=== PATIENT | male | born 1995 ===

== ENCOUNTER 2017-10-11 00:20 | Emergency (ER) | payer SELFPAY ==
--- NOTE | 2017-10-11 00:24 | EDPHY ---
H & P Source: Patient, EMS Time Seen by Provider: 10/11/17 00:23 HPI/ROS: HPI CHIEF COMPLAINT: Alcohol intoxication, seizure HISTORY OF PRESENT ILLNESS: 21-year-old male, homeless, daily alcohol use presents to the emergency room after he had a seizure. Reports to me that he does have a seizure history, however does not take any seizure medications. He has been drinking alcohol this evening. EMS and police made contact him as he was having a seizure in the street. No reported trauma. Upon arrival to the emergency room the patient is intoxicated, smells of alcohol. No trauma reported. Past Medical History: Epilepsy, seizure disorder but not on any medications Past Surgical History: No recent surgical history Social History: Alcohol use, daily alcohol use. Homeless. Family History: Noncontributory ROS REVIEW OF SYSTEMS: A comprehensive 10 point review of systems is otherwise negative aside from elements mentioned in the history of present illness. Exam Constitutional smells of alcohol, intoxicated, triage nursing summary reviewed , vital signs reviewed, awake/alert. Eyes normal conjunctivae and sclera, EOMI, PERRLA. HENT normal inspection, atraumatic, moist mucus membranes, no epistaxis, neck supple/ no meningismus, no raccoon eyes. Respiratory clear to auscultation bilaterally, normal breath sounds, no respiratory distress, no wheezing. Cardiovascular rate normal, regular rhythm, no murmur, no edema, distal pulses normal. Gastrointestinal soft, non-tender, no rebound, no guarding, normal bowel sounds, no distension, no pulsatile mass. Genitourinary no CVA tenderness. Musculoskeletal no midline vertebral tenderness, full range of motion, no calf swelling, no tenderness of extremities, no meningismus, good pulses, neurovascularly intact. Skin pink, warm, & dry, no rash, skin atraumatic. Neurologic awake, alert and oriented x 3, AAOx3, moves all 4 extremities equally, motor intact, sensory intact, CN II-XII intact, normal cerebellar, normal vision, normal speech. Psychiatric normal mood/affect. Heme/Lymph/Immune no lymphadenopathy. Differential Diagnosis: Includes but is not limited to in a particular order: Acute alcohol intoxication, seizure, breakthrough seizure, epilepsy, drug intoxication. Electrolyte abnormality. Medical Decision Making: Plan for this patient IV establishment basic blood draw, electroylte, monitor closely for further seizures. Re-evaluation: Patient on a detainer for acute alcohol intoxication. He now is walking around the ER acutely agitated and yelling and screaming. He has taken all his clothes off. He has been moved to room 17 from room 11. He has been given 10 mg IM Haldol for acute agitation aggressive behavior and screaming 2mg IM Ativan. 0100: Serum alcohol 212. 0512: Patient is sleeping. 0700: signed over to Dr. Vizcarra. (Sukh Colorado) Constitutional: Initial Vital Signs Temperature (C) 36.3 C 10/11/17 00:14 Heart Rate 109 H 10/11/17 00:14 Respiratory Rate 18 10/11/17 00:14 Blood Pressure 114/73 10/11/17 00:14 O2 Sat (%) 94 10/11/17 00:14 O2 Delivery Mode Room Air Allergies/Adverse Reactions: No Known Allergies Allergy (Unverified 10/11/17 02:57) Home Medications: Medication Instructions Recorded NK [No Known Home Meds] 10/11/17 Medical Decision Making Other Provider: Care assumed from Dr. Colorado at 6:45 a.m.. Unclear if he actually had a seizure, normal bicarbonate. He does have alcohol intoxication. He was sedated prior to my arrival, the plan as signed out to me is serial exams and discharge when normal mental status. 1130: The patient is alert and ambulatory in the emergency department. He admits to alcohol use. He admits to methamphetamine use but not for a day or 2. He tells me he has had previous diagnosis seizure, not on medication, would refuse to take medication if it is prescribed. He is not intoxicated now, clinically sober. Does have capacity to make decisions regarding his care at this time. He refused further medical evaluation, refused referral to detox. He is given primary care and neurology referrals, detox referral, encouraged to follow up there. Clearly has capacity to make decisions regarding his care now. (Blaine Vizcarra) - Data Points Laboratory Results: Laboratory Results 10/11/17 01:20 10/11/17 01:20 10/11/17 10/11/17 10/11/17 10:55 01:20 01:20 WBC 10.26 10^3/uL H 10^3/uL (3.80-9.50) RBC 5.04 10^6/uL 10^6/uL (4.40-6.38) Hgb 14.5 g/dL g/dL (13.7-17.5) Hct 42.5 % % (40.0-51.0) MCV 84.3 fL fL (81.5-99.8) MCH 28.8 pg pg (27.9-34.1) MCHC 34.1 g/dL g/dL (32.4-36.7) RDW 13.4 % % (11.5-15.2) Plt Count 354 10^3/uL 10^3/uL (150-400) MPV 9.1 fL fL (8.7-11.7) Neut % (Auto) Not Reported Lymph % (Auto) Not Reported Nash % (Auto) Not Reported Eos % (Auto) Not Reported Baso % (Auto) Not Reported Nucleat RBC Rel Count Not Reported Absolute Neuts (auto) Not Reported Absolute Lymphs (auto) Not Reported Absolute Monos (auto) Not Reported Absolute Eos (auto) Not Reported Absolute Basos (auto) Not Reported Absolute Nucleated RBC Not Reported Immature Gran % Not Reported Seg Neutrophils % 32.3 % % Band Neutrophils % 0.0 % % Lymphocytes % 55.6 % % Monocytes % 6.1 % % Eosinophils % 3.0 % % Basophils % 3.0 % % Metamyelocytes % 0.0 % % Myelocytes % 0.0 % % Promyelocytes % 0.0 % % Blast Cells % 0.0 % % Immature Gran # Not Reported Absolute Seg Neuts 3.31 10^/uL 10^/uL (1.70-6.50) Absolute Band Neuts 0.00 10^3/uL 10^3/uL (0.00-0.70) Absolute Lymphocytes 5.70 10^3/uL H 10^3/uL (1.00-3.00) Absolute Monocytes 0.63 10^3/uL 10^3/uL (0.30-0.80) Absolute Eosinophils 0.31 10^3/uL 10^3/uL (0.03-0.40) Absolute Basophils 0.31 10^3/uL H 10^3/uL (0.02-0.10) Absolute Metamyelocyte 0.00 10^3/mL 10^3/mL (0.00-0.00) Absolute Myelocytes 0.00 10^3/mL 10^3/mL (0.00-0.00) Absolute Promyelocytes 0.00 10^3/uL 10^3/uL (0.00-0.00) Absolute Plasma Cells 0.00 10^3/uL 10^3/uL (0.00-0.00) Nucleated RBCs 1.0 /100 WBC H /100 WBC (0-0) Atypical Lymphocytes 1+ H Absolute Blast Cells 0.00 10^3/uL 10^3/uL (0.00-0.00) Plasma Cells % 0.0 % % Platelet Estimate ADEQUATE (ADEQ) Sodium 144 mEq/L mEq/L (135-145) Potassium 4.2 mEq/L mEq/L (3.3-5.0) Chloride 108 mEq/L mEq/L (97-110) Carbon Dioxide 20 mEq/l L mEq/l (22-31) Anion Gap 16 mEq/L mEq/L (8-16) BUN 20 mg/dL mg/dL (7-23) Creatinine 0.9 mg/dL mg/dL (0.7-1.3) Estimated GFR > 60 Glucose 105 mg/dL H mg/dL (70-100) Calcium 9.0 mg/dL mg/dL (8.5-10.4) Urine Opiates Screen NEGATIVE (NEGATIVE) Urine Barbiturates NEGATIVE (NEGATIVE) Ur Phencyclidine Scrn NEGATIVE (NEGATIVE) Ur Amphetamine Screen NON-NEGATIVE H (NEGATIVE) U Benzodiazepines Scrn NON-NEGATIVE H (NEGATIVE) Urine Cocaine Screen NEGATIVE (NEGATIVE) U Marijuana (THC) Screen NEGATIVE (NEGATIVE) Ethyl Alcohol 212 mg/dL H mg/dL (0-10) Medications Given: Discontinued Medications Haloperidol Lactate (Haldol Injection) 10 mg IM EDNOW ONE Stop: 10/11/17 00:42 Last Admin: 10/11/17 10:36 Dose: Not Given Haloperidol Lactate (Haldol Injection) 5 mg IM EDNOW ONE Stop: 10/11/17 00:43 Last Admin: 10/11/17 00:47 Dose: 5 mg Sodium Chloride (Ns) 1,000 mls @ 0 mls/hr IV EDNOW ONE; Wide Open PRN Reason: Protocol Stop: 10/11/17 00:23 Last Admin: 10/11/17 01:24 Dose: 1,000 mls Sodium Chloride (Ns) 1,000 mls @ 0 mls/hr IV ONCE ONE; Wide Open PRN Reason: Protocol Stop: 10/11/17 05:18 Last Admin: 10/11/17 05:20 Dose: 1,000 mls Lorazepam (Ativan Injection) 2 mg IM Q4HRS PRN PRN Reason: Anxiety, Unable to Take PO Stop: 04/09/18 00:41 Last Admin: 10/11/17 00:48 Dose: 2 mg Departure - Departure Disposition: Home, Routine, Self-Care Clinical Impression: possible seizure Alcoholic intoxication Qualifiers: Complication of substance-induced condition: uncomplicated Qualified Code(s): F10.920 - Alcohol use, unspecified with intoxication, uncomplicated Condition: Good Instructions: Alcohol Intoxication (ED), Abuse of Alcohol (ED) Additional Instructions: Please follow-up at primary care [facility], or with Neurology Dr. Wiley for this question of possible seizure. No driving or swimming, no climbing on ladders or climbing trees, no other potentially dangerous activities until cleared by follow-up primary care or neurologist. Your also referred to detox if you choose to go there. Referrals: [facility],. [Clinic] - As per Instructions Kendall Wiley DO [Doctor of Osteopathy] - As per Instructions [facility] 24 Hours [Outside] - As per Instructions
[2017-10-11] MEDS ORDERED: HALOPERIDOL LACT 5 MG/ML INJ ONE ×2 (00:41→00:42)
[2017-10-11] MEDS ORDERED: LORazepam 2 MG/ML INJ ONE (00:42)
[2017-10-11] MEDS: HALOPERIDOL LACT 5 MG/ML INJ IM ONE ×2 (00:47→10:36)
[2017-10-11] MEDS: LORazepam 2 MG/ML INJ IM PRN (00:48)
[2017-10-11] MEDS: NS 1,000 ML IV ONE ×2 (01:24→05:20)
[2017-10-11 01:29] LABS: PLATELET COUNT 354 10^3/uL (150-400)
[2017-10-11 12:05] VITALS: BP 114/65
== END 2017-10-11 12:04 | disposition home or self-care (01) ==
DX: F10.129 Alcohol abuse with intoxication, unspecified (principal); G40.909 Epilepsy, unspecified, not intractable, without status epilepticus; Z59.0 Homelessness; F15.90 Other stimulant use, unspecified, uncomplicated; Y90.7 Blood alcohol level of 200-239 mg/100 ml; E86.9 Volume depletion, unspecified
CPT/HCPCS: 80305; 96374; G0480; J1630; J2060